=== PATIENT | male | born 1985 | race Caucasian/White ===

== ENCOUNTER 2023-06-01 10:47 | Emergency (ER) | payer MEDICAID, SELFPAY ==
[2023-06-01 11:01] VITALS: BP 140/70; BP 148/97; PULSE 78; PULSE 91; RESP 18; TEMP 37.1; O2SAT 98; O2SAT 99; BMI 23.3
--- NOTE | 2023-06-01 11:42 | PC.NURSE ---
pt to xray
--- NOTE | 2023-06-01 13:29 | PC.NURSE ---
provider came to speak with patient and has opted to order bilateral heel ct scan, pt is aware of this.
--- NOTE | 2023-06-01 13:53 | PC.NURSE ---
pt to ct scan with tech and security
--- NOTE | 2023-06-01 15:02 | ED.LOWEXIN ---
HPI - Extremity Injury (Lower) General Chief Complaint: Extremity Injury, Lower Stated Complaint: Section 21 [address]. 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 He is on a Section 12 and was transported by ambulance. Patient states that he was playing basketball in his bare feet. He states that he jumped up to dunk a ball and when he came down he landed on his heels. He developed immediate pain in his heels. He states that he is not able to put any weight on his heels and has to walk on his toes. States his right heel hurts more than his left. Patient was sent to the emergency department for evaluation of his injuries. Related Data Allergies Allergy/AdvReac Type Severity Reaction Status Date / Time No Known Allergies Allergy Verified 06/01/23 11:00 Review of Systems Review of Systems: Yes all other systems are reviewed and are negative FOR[facility] Past Medical History Medical History (Updated 06/01/23 @ 15:08 by Owen Lopez MD) Hypertension Social History Social History Alcohol intake: current Alcohol intake frequency: holidays/special occasions only Smoked in Last 30 Days: Yes Use of substances other than those prescribed or required for medical reasons: Yes Substance Use Type: Marijuana Advance Directives: No Physical Exam Vital Signs: Vital Signs: Last Vital Signs Temp 98.8 F 06/01/23 11:01 Pulse 78 06/01/23 11:01 Resp 18 06/01/23 11:01 BP 148/97 H 06/01/23 11:01 Pulse Ox 99 06/01/23 11:01 O2 Del Method Room Air 06/01/23 11:01 BMI result Body Mass Index 23.3 Vital signs did reveal an elevated blood pressure 148/97 General: Awake, alert, male patient, does not appear to be in distress, is cooperative, does have paranoid ideation Extremities: The patient does have tenderness palpation over both heels, right greater than left, there is no ecchymosis or increased warmth. Patient has no tenderness palpation of the other bones of his feet. He is able to walk on his toes only but not able to put any weight on his heels. His feet are neurovascularly intact Medical Decision Making Medical Decision Making MDM Narrative: 38-year-old male who is currently on a Section 12 at [facility] for psychosis not otherwise specified and paranoid/delusional ideation. Patient was playing basketball barefoot, the attempted to dunk a basketball and landed on his heels. Since that time he has not been able to put weight on his heels. Exam did reveal tenderness palpation of his heels and inability to put weight on his heels. Plain x-rays did not reveal any acute fractures however given his presentation and high risk for missing fracture of the heel on plain films I did get bilateral CT scans of his heels which revealed no acute fracture pain I did discuss this with the patient. Patient was given ibuprofen orally. He will be discharged back to [facility] by [facility] on a Section 11/21. Differential Diagnosis Differential Diagnoses: The differential diagnosis associated with the presentation includes Differential diagnosis includes was not limited to soft tissue injury, dislocation, calcaneus fracture Independent Interpretation I performed an independent interpretation of an: Plain X-Ray Interpretation: My independent interpretation of the patient's bilateral calcaneus is plain films is no acute fracture seen Radiology Impression Discussion of test interpretation with radiology: I have reviewed the radiologist's reading. Radiologist Impression: XR calcaneus RT , XR calcaneal LT min 2V IMPRESSION: No significant bony abnormality of the right or left calcaneus. Dictated By:Aki Walter MD CT foot LT wo IV con and CT foot RT wo IV con IMPRESSION: 1. No fracture. 2. Small calcaneal spur. Dictated By:Soham Sultana MD External Record Review External record reviewed: Other (Record from [facility] was reviewed by me) Prescription Management I considered prescription management with: Pain Medication Discharge Plan Discharge Clinical Impression: Heel pain, bilateral Patient Disposition: Home, Self-Care Additional Instructions: Both the plain x-rays and the CT scans of your heels revealed no broken bones which is very reassuring Your pain is caused by bruising to the soft tissues of the heel Apply ice to healed for 15 minutes 4 times a day to help reduce the inflammation. Take ibuprofen 200 mg pills, 2 pills every 6 hours as needed for pain. Take Tylenol (acetaminophen) 500 mg pills, 2 pills every 6 hours as needed for pain. Follow-up with your doctor in 2 days. Please return to the emergency department if your symptoms get worse or if you develop any symptoms that are concerning to you.
--- NOTE | 2023-06-01 15:09 | PC.NURSE ---
report called to srinivasan at [facility]
[2023-06-01 15:11] VITALS: BP 123/88; PULSE 64; RESP 16; TEMP 36.8; O2SAT 98
== END 2023-06-01 16:16 ==
PROVIDERS: Emergency Provider Emergency Medicine Emergency Medical Services
DX: M79.672 Pain in left foot (principal); M79.671 Pain in right foot; I10 Essential (primary) hypertension; F12.90 Cannabis use, unspecified, uncomplicated; F29 Unspecified psychosis not due to a substance or known physiological condition; F22 Delusional disorders
CPT/HCPCS: 73650; 73700; 99284; 99285